=== PATIENT | female | born 1980 | race Two or more races ===

== ENCOUNTER → 2016-07-08 | Outpatient (CLI) | payer BC, OTHER ==
[~2016-07-08] MED LIST: /DULO30CA; AMBI10TA; CELE20TA; KLON0.5T; PRESTIQ; SOMA350T; XANA1TAB2
--- NOTE | 2016-07-09 07:08 | REP ---
RIGHT WRIST, FOUR VIEWS: HISTORY: Injury. There is no acute fracture or dislocation. The joint spaces are normal in appearance. IMPRESSION: There is no acute fracture or dislocation. Signed by Maxwell Levin MD 07/09/2016 08:26 A
--- NOTE | 2016-07-09 07:09 | REP ---
RIGHT FOREARM, TWO VIEWS: HISTORY: Injury. There is no acute fracture or dislocation. The joint spaces are normal in appearance. IMPRESSION: There is no acute fracture or dislocation. Signed by Maxwell Levin MD 07/09/2016 08:26 A
== END ==
LOC: M LRY 16:16
PROVIDERS: ATTEND Nurse Practitioner Family
DX: S49.91XA Unspecified injury of right shoulder and upper arm, initial encounter (principal); X58.XXXA Exposure to other specified factors, initial encounter; Y92.89 Other specified places as the place of occurrence of the external cause; Y93.89 Activity, other specified; Y99.8 Other external cause status